=== PATIENT | male | born 1970 | race Caucasian/White ===

== ENCOUNTER 2016-06-23 09:06 | Emergency (ER) | payer MEDICAID ==
[2016-06-23] MEDS ORDERED: NITROGLYCERIN 0.4 MG TAB.SUBL SUBLINGUAL ONE (09:28)
[2016-06-23] MEDS ORDERED: CLOPIDOGREL BISULFATE 75 MG TABLET PO ONE (09:31)
[2016-06-23] MEDS ORDERED: NITROGLYCERIN OINT 1 GM PACKET ONE (09:31)
[2016-06-23 09:39] LABS: BASOPHILS 0.6 % (0.0-2.0); EOSINOPHILS 1.9 % (0.0-6.0); EOSINOPHILS# 0.1 X 10^3uL (0.0-0.4); HEMATOCRIT 50.9 % (42.0-54.0); HEMOGLOBIN 17.8 g/dL (14.0-18.0); LYMPHOCYTES 32.1 % (20.0-40.0); LYMPHOCYTES# 2.3 X 10^3uL (0.8-3.8); MEAN CELL VOLUME 86.5 fL (80.0-100.0); MEAN CORPUSCULAR HEMOGLOBIN 30.3 pg (29.0-35.0); MEAN PLATELET VOLUME 8.1 fL (7.4-10.4); MONOCYTES 13.1 % (2.0-10.0); MONOCYTES# 0.9 X 10^3uL (0.2-1.0); NEUTROPHILS 52.3 % (54.0-75.0); NEUTROPHILS# 3.7 X 10^3uL (2.6-6.7); PLATELET COUNT 201 X 10^3uL (130-440); RED BLOOD COUNT 5.88 X 10^6uL (4.20-6.10); RED CELL DISTRIBUTION WIDTH 12.1 % (11.5-14.5)
[2016-06-23 09:46] LABS: BLOOD UREA NITROGEN 22 mg/dL (9-20); CALCIUM 9.7 mg/dL (8.4-10.2); CHLORIDE 101 mmol/L (98-107); CREATININE 1.1 mg/dL (0.7-1.3); EST GLOMERULAR FILTRATION RATE > 60 mL/min; INR 0.9; MAGNESIUM 1.7 mg/dL (1.6-2.3); POTASSIUM 3.8 mmol/L (3.5-5.1); SODIUM 138 mmol/L (137-145)
[2016-06-23] MEDS ORDERED: HEPARIN SOD PORCINE 5,000 UNITS/ML VIAL ONE (09:47)
[2016-06-23 09:48] LABS: GLUCOSE 213 mg/dL (70-100)
[2016-06-23] MEDS ORDERED: TENECTEPLASE 50 MG KIT IV ONE (09:48)
[2016-06-23 09:59] LABS: TROPONIN I 0.037 ng/mL (0.00-0.034)
[2016-06-23] MEDS ORDERED: MORPHINE SULFATE 2 MG/ML SYR ONE (10:00)
--- NOTE | 2016-06-23 10:00 | ER NURSING DOCUMENTATION ---
Nurse's Notes [facility] Name:Morales Devi Age:45 yrs Sex:Male :1970 Arrival Date:06/23/2016 Time:09:06 BedTrauma-C Private MD: Diagnosis:Inferior Myocardial Infarction, STEMI Presentation: 06/23 09:09 Acuity: KALEB 2 lp 09:15 Acuity: KALEB 1 lp 09:34 Presenting complaint: Patient states: chest pain. Transition of care: Home. AIR CAT lp ACTIVATION yes. AIR CAT ACTIVATION other unable to fly. Asprin Given Given in ED. Risk considerations: sudden onset of chest pain, movement or migration of pain. Notified ED Physician of Dr. Dejesus notified. 09:34 Method Of Arrival: Private Vehicle lp Triage Assessment: 09:36 General: Appears uncomfortable, Behavior is anxious. Pain: Complains of pain in left lp clavicle, anterior aspect of left upper chest and left breast. EENT: No deficits noted. Neuro: No deficits noted. Cardiovascular: Heart tones S1 S2 muffled Pulses are all present. Respiratory: Airway is patent Breath sounds are clear bilaterally. Reports cough that is. GI: Bowel sounds present X 4 quads. : No deficits noted. Derm: Skin is diaphoretic, Skin is normal. Historical: - Allergies: No known drug Allergies; - Home Meds: 1. atenolol 50 mg oral tab 1 tab once daily 2. hydrochlorothiazide 25 mg oral tab 1 tab 2 times per day 3. gabapentin 300 mg oral cap 1 cap 3 times per day - PMHx: Hypertension; - PSHx: Unable to obtain; - Tetanus: unknown. - Ebola Screening: : Patient negative for fever greater than or equal to 101.5 degrees Fahrenheit, and additional compatible Ebola Virus Disease symptoms. Patient denies exposure to infectious person. Patient denies travel to an Ebola-affected area in the 21 days before illness onset. . - Immunization history: Unable to Obtain. - Social history: Smoking status: Patient states was never smoker of tobacco. Screenin:34 Infectious Disease Risk None. Abuse screen: Denies threats or abuse. Denies injuries lp from another. Nutritional screening: No deficits noted. Assessment: 09:32 Also complains of shortness of breath, sleeplessness. See Triage Assessment done by lp same RN. Pain: Complains of pain in left supraclavicular area, left clavicle, anterior aspect of left upper chest and left breast Pain radiates to anterior aspect of left shoulder Pain began 2 hours ago. Cardiovascular: Capillary refill < 3 seconds Reports shortness of breath Chest pain worse when lying flat. Respiratory: Breath sounds are coarse. Vital Signs: 09:10 Pulse Ox 88% on R/A; lp 09:13 Pulse Ox 92% on 2 lpm NC; lp 09:31 BP 131 / 82 (auto/); lp 09:31 Weight 131.54 kg; Height 5 ft. 8 in. (172.72 cm); lp 09:32 Pulse 70 MON; Resp 22; Pulse Ox 93% ; lp 09:37 Pulse 103 MON; Resp 20; Pulse Ox 95% ; lp 09:39 Weight 131.54 kg; Height 5 ft. 8 in. (172.72 cm); lp 09:42 Pulse 100 MON; Resp 23; Pulse Ox 94% ; lp 09:46 BP 135 / 81 (auto/); lp 09:47 Pulse 101 MON; Resp 24; Pulse Ox 95% ; lp 09:49 Pain 8/10; lp 09:54 Pain 5/10; lp 09:39 Body Mass Index 44.09 (131.54 kg, 172.72 cm) lp 09:49 MD notified of pain level orders received lp ED Course: 09:07 Patient arrived in ED. lm3 09:09 Gwen Kate, RN is Primary Nurse. lp 09:12 EKG done. (by ED staff). Reviewed by Roverto Dejesus MD. Labs drawn. (by ED staff). Inserted lp peripheral IV: 20 gauge in left antecubital area and blood collected. 09:15 Triage completed. lp 09:15 Inserted saline lock: 20 gauge in right forearm and blood collected. by NADIA Malagon. lp Oxygen Oxygen administration via nasal cannula @ 2L/min. 09:32 CHEST; SINGLE VIEW 37684 In Process Unspecified. EDMS 09:32 CHEST SINGLE VIEW [id number] In Process Unspecified. EDMS 09:35 Roverto Dejesus MD is Attending Physician. sc 09:39 Labs drawn. Portable x-ray done. lp 09:39 Valuables Remains with patient Patient has correct armband on for positive lp identification. Placed in gown. Bed in low position. Call light in reach. Cardiac Monitoring On for Nurse Monitoring only. Pulse Ox - RN Monitoring Only NIBP On - RN Monitoring Only. 10:06 EKG attached lp 10:19 Other attached lp Administered Medications: 09:15 Drug: Aspirin 81 mg, 4 tabs, total of 324 mg - Aspirin 81 mg; Route: PO; lp 09:48 Follow up: Response: No adverse reaction; No change in condition lp 09:15 Drug: Nitroglycerin 0.4 mg; Route: Sublingual; lp 09:48 Follow up: Response: No adverse reaction; Pain is decreased lp 09:15 Drug: Plavix 300 mg PO once for patients <75 years of age - Plavix 300 mg; Route: PO; lp 09:48 Follow up: Response: No adverse reaction; No change in condition lp 09:20 Drug: Nitro-Bid Ointment 2 % 1 inches; Route: Transdermal; Site: anterior chest wall; lp 09:49 Follow up: Response: No adverse reaction; No change in condition; Pain is unchanged, lp physician notified 09:44 Drug: heparin 60 units/kg; {Note: 4000units.} Route: IVP; Site: right antecubital; lp 09:53 Follow up: Response: No adverse reaction lp 09:44 Drug: Metoprolol 5 mg; Route: IVP; Infused Over: 2 mins; Site: right antecubital; lp 09:55 Follow up: Response: No adverse reaction; No change in condition lp 09:45 Drug: TNKase per protocol 50 mg; Volume: 10 ml; Route: IV; Rate: bolus; Infused Over: 1 lp mins; Site: right antecubital; 09:58 Follow up: Response: No adverse reaction lp 10:16 Follow up: Response: No adverse reaction; IV Status: Completed infusion lp 09:49 Drug: morphine 2 mg; Route: IVP; Infused Over: 2 mins; Site: right antecubital; lp 09:54 Follow up: Response: Pain is decreased lp Outcome: 09:13 [facility] Time: June 23, 2016 at 09:30 Patient's face sheet was faxed to accepting facility. Face Sheet included patient's name, address, age, gender, contact information and insurance information. Patient will be transported by: [facility] ground. 09:13 critical 09:13 Instructed on need for transfer 09:55 ER care complete, transfer ordered by giles 10:00 Patient left the ED. lp 10:14 Report given to Tawny BREWER in CICU at [facility]. Patient to go to room 2303 lp Signatures: Dispatcher [employer] Gwen Patel RN RN Roverto Dillon MD MD sc Norman, David dnn McKibbon-Moore, Elda Mulu
--- NOTE | 2016-06-23 10:00 | ER PHYSICIAN DOCUMENTATION ---
Physician Documentation [facility] Name:Morales Devi Age:45 yrs Sex:Male :1970 Arrival Date:06/23/2016 Time:09:06 BedTrauma-C Private MD: Roverto Gupta Disposition: 06/23 09:53 Critical Care: not applicable. wi Disposition: 06/23/16 09:55 Transfer ordered to [facility]. Diagnosis is Inferior Myocardial Infarction, STEMI. - Reason for transfer: Specialty. - Accepting physician is . - Condition is Critical. - Problem is new. - Symptoms are unchanged. COBRA Form completed? Yes Transfer - Mode of Transportation Ambulance HPI: 09:40 This 45 yrs old Male presents to ER via Private Vehicle with complaints of sc Chest Pressure, Shortness Of Breath. 09:40 The patient or guardian reports chest pain that is located primarily in the anterior sc chest wall. Onset: acutely, 2.5 hour(s) ago. The pain does not radiate. There has been no movement of pain. Associated signs and symptoms: Pertinent positives: diaphoresis, nausea, shortness of breath. The chest pain is described as a pressure. Modifying factors: The symptoms are alleviated by nothing. the symptoms are aggravated by nothing. Severity of pain: At its worst the pain was severe in the emergency department the pain is unchanged. Historical: - Allergies: No known drug Allergies; - Home Meds: 1. atenolol 50 mg oral tab 1 tab once daily 2. hydrochlorothiazide 25 mg oral tab 1 tab 2 times per day 3. gabapentin 300 mg oral cap 1 cap 3 times per day - PMHx: Hypertension; - PSHx: Unable to obtain; - Tetanus: unknown. - Ebola Screening: : Patient negative for fever greater than or equal to 101.5 degrees Fahrenheit, and additional compatible Ebola Virus Disease symptoms. Patient denies exposure to infectious person. Patient denies travel to an Ebola-affected area in the 21 days before illness onset. . - Immunization history: Unable to Obtain. - Social history: Smoking status: Patient states was never smoker of tobacco. ROS: 09:49 Constitutional: Negative for fever, chills, and weight loss. sc Eyes: Negative for injury, pain, redness, and discharge. ENT: Negative for injury, pain, and discharge. Neck: Negative for injury, pain, and swelling. MS/Extremity: Negative for injury and deformity. Skin: Negative for injury, rash, and discoloration. 09:49 Neuro: Negative for headache, weakness, numbness, tingling, and seizure. sc 09:49 Cardiovascular: Positive for chest pain. 09:49 Respiratory: Positive for shortness of breath. 09:49 Abdomen/GI: Positive for nausea. Exam: Head/Face: Normocephalic, atraumatic. Eyes: Pupils equal round and reactive to light, extra-ocular motions intact. Lids and lashes normal. Conjunctiva and sclera are non-icteric and not injected. Cornea within normal limits. Periorbital areas with no swelling, redness, or edema. ENT: Nares patent. No nasal discharge, no septal abnormalities noted. Tympanic membranes are normal and external auditory canals are clear. Oropharynx with no redness, swelling, or masses, exudates, or evidence of obstruction, uvula midline. Mucous membranes moist. Neck: Trachea midline, no thyromegaly or masses palpated, and no cervical lymphadenopathy. Supple, full range of motion without nuchal rigidity, or vertebral point tenderness. No meningismus. Chest/axilla: Normal chest wall appearance and motion. Nontender with no deformity. No lesions are appreciated. Cardiovascular: Regular rate and rhythm with a normal S1 and S2. No gallops, murmurs, or rubs. Normal PMI, no JVD. No pulse deficits. Respiratory: Lungs have equal breath sounds bilaterally, clear to auscultation and percussion. No rales, rhonchi or wheezes noted. No increased work of breathing, no retractions or nasal flaring. Abdomen/GI: Soft, non-tender, with normal bowel sounds. No distension or tympany. No guarding or rebound. No evidence of tenderness throughout. Back: No spinal tenderness. No costovertebral tenderness. Full range of motion. Skin: Warm, dry with normal turgor. Normal color with no rashes, no lesions, and no evidence of cellulitis. MS/ Extremity: Pulses equal, no cyanosis. Neurovascular intact. Full, normal range of motion, negative Homans's, calves equal bilaterally. 09:49 Neuro: Awake and alert, GCS 15, oriented to person, place, time, and situation. wi Cranial nerves II-XII grossly intact. Motor strength 5/5 in all extremities. Sensory grossly intact. Cerebellar exam normal. Normal gait. 09:49 Constitutional: The patient appears diaphoretic, in obvious distress, moderately distressed. 09:49 Cardiovascular: Rate: normal, Rhythm: regular. 09:49 Respiratory: mild respiratory distress is noted, Respirations: tachypnea, Breath sounds: are normal, clear throughout. Vital Signs: 09:10 Pulse Ox 88% on R/A; lp 09:13 Pulse Ox 92% on 2 lpm NC; lp 09:31 BP 131 / 82 (auto/); lp 09:31 Weight 131.54 kg; Height 5 ft. 8 in. (172.72 cm); lp 09:32 Pulse 70 MON; Resp 22; Pulse Ox 93% ; lp 09:37 Pulse 103 MON; Resp 20; Pulse Ox 95% ; lp 09:39 Weight 131.54 kg; Height 5 ft. 8 in. (172.72 cm); lp 09:42 Pulse 100 MON; Resp 23; Pulse Ox 94% ; lp 09:46 BP 135 / 81 (auto/); lp 09:47 Pulse 101 MON; Resp 24; Pulse Ox 95% ; lp 09:49 Pain 8/10; lp 09:54 Pain 5/10; lp 09:39 Body Mass Index 44.09 (131.54 kg, 172.72 cm) lp 09:49 MD notified of pain level orders received lp MDM: 09:35 Patient medically screened. wi 09:50 Differential diagnosis: acute myocardial infarction. Patient took aspirin in the wi Emergency Department. The patient was given a fibrinolytic in the Emergency Department. Data reviewed: vital signs, nurses notes, lab test result(s), EKG, radiologic studies, and as a result, I will *Transfer Patient. Data interpreted: manager speech: rate is 80 beats/min, rhythm is normal sinus rhythm. Counseling: I had a detailed discussion with the patient and/or guardian regarding: the historical points, exam findings, and any diagnostic results supporting the discharge/admit diagnosis, lab results, radiology results, the need to transfer to another facility, [facility] does not immediately have the required specialist. ECG:. 09:52 Physician consultation: Dr. Hurtado was called at 09:52, was contacted at 09:52, wi regarding patient's condition, after a discussion of the case, a recommendation for transfer for higher level of care is made. 10:06 EKG attached lp 10:19 Other attached lp 06/23 09:42 Order name: CBC AUTO DIF, MDIF/RMOR IF IND EDWY 06/23 09:48 Order name: PROTIME/INR [facility] 06/23 09:49 Order name: BASIC METABOLIC PANEL [facility] 06/23 09:49 Order name: MAGNESIUM [facility] 06/23 10:00 Order name: TROPONIN I [facility] 06/23 09:32 Order name: CHEST; SINGLE VIEW [id number]; Complete Time: 09:40 [facility] 06/23 09:39 Interpretation: Normal. wi 06/23 09:32 Order name: CHEST SINGLE VIEW [id number]; Complete Time: 09:40 EDWY 06/23 09:39 Interpretation: Normal. wi 06/23 09:24 Order name: CALL HELICOPTER; Complete Time: 09:32 06/23 09:24 Order name: Continuous Cardiac Monitoring; Complete Time: 09:32 06/23 09:24 Order name: DEFIB PADS - appropriate for specific helicopter; Complete Time: 09:42 06/23 09:24 Order name: EKG - 12 Lead; Complete Time: 09:32 lp 06/23 09:24 Order name: EKG - fax to [phone]; Complete Time: 10:00 06/23 09:24 Order name: IV saline lock X2; Complete Time: 10:00 06/23 09:24 Order name: Oxygen; Complete Time: 09:42 06/23 09:24 Order name: Pulse Ox Continuous; Complete Time: 09:42 lp EC:50 Rate is 80 beats/min. Rhythm is regular. QRS [place] is Normal. [place] interval is normal. QRS sc interval is normal. QT interval is normal. Q waves are Present. T waves are Flattened. ST Segment is elevated in leads III, aVF. ST Segment is depressed in lead V2. Clinical impression: Acute [place]. Interpreted by me. Reviewed by me. Dispensed Medications: 09:15 Drug: Aspirin 81 mg, 4 tabs, total of 324 mg - Aspirin 81 mg; Route: PO; lp 09:48 Follow up: Response: No adverse reaction; No change in condition lp 09:15 Drug: Nitroglycerin 0.4 mg; Route: Sublingual; lp 09:48 Follow up: Response: No adverse reaction; Pain is decreased lp 09:15 Drug: Plavix 300 mg PO once for patients <75 years of age - Plavix 300 mg; Route: PO; lp 09:48 Follow up: Response: No adverse reaction; No change in condition lp 09:20 Drug: Nitro-Bid Ointment 2 % 1 inches; Route: Transdermal; Site: anterior chest wall; lp 09:49 Follow up: Response: No adverse reaction; No change in condition; Pain is unchanged, lp physician notified 09:44 Drug: heparin 60 units/kg; {Note: 4000units.} Route: IVP; Site: right antecubital; lp 09:53 Follow up: Response: No adverse reaction lp 09:44 Drug: Metoprolol 5 mg; Route: IVP; Infused Over: 2 mins; Site: right antecubital; lp 09:55 Follow up: Response: No adverse reaction; No change in condition lp 09:45 Drug: TNKase per protocol 50 mg; Volume: 10 ml; Route: IV; Rate: bolus; Infused Over: 1 lp mins; Site: right antecubital; 09:58 Follow up: Response: No adverse reaction lp 10:16 Follow up: Response: No adverse reaction; IV Status: Completed infusion lp 09:49 Drug: morphine 2 mg; Route: IVP; Infused Over: 2 mins; Site: right antecubital; lp 09:54 Follow up: Response: Pain is decreased lp Signatures: Gwen Kate RN RN Roverto Dillon MD MD wi
[2016-06-23] MEDS ORDERED: MORPHINE SULFATE 10 MG/ML SYR ONE (12:56)
== END 2016-06-23 10:00 | disposition short-term general hospital (02) ==
LOC: ER 09:06
DX: I21.19 ST elevation (STEMI) myocardial infarction involving other coronary artery of inferior wall (principal); R06.02 Shortness of breath; R11.0 Nausea; R61 Generalized hyperhidrosis; I10 Essential (primary) hypertension; Z79.899 Other long term (current) drug therapy; Z99.89 Dependence on other enabling machines and devices; Z99.81 Dependence on supplemental oxygen; Z74.3 Need for continuous supervision
CPT/HCPCS: 71010; 80048; 83735; 84484; 85025; 85610; 92977; 93005; 96365; 96375; 99285; A0425; A0427; J1644; J2270; J3101